=== PATIENT | female | born 1970 | race Caucasian/White ===

== ENCOUNTER 2022-09-20 19:32 | Inpatient (IN) | payer MEDICAID ==
[~2022-09-20] VITALS: Ht 162.6 cm; Wt 83.9 kg
[2022-09-20 19:40] VITALS: BP_SYST 172
[2022-09-20] MEDS ORDERED: iohexoL 350 mgI/mL, 100 ML INFUS..BTL IV ONE (19:53)
[2022-09-20] MEDS ORDERED: ATORVASTATIN 20 MG TABLET PO ONE (21:00)
[2022-09-20] MEDS ORDERED: CLOPIDOGREL BISULFATE 75 MG TABLET PO ONE (21:00)
[2022-09-20] MEDS ORDERED: ASPIRIN 325 MG TABLET PO ONE (21:00)
[2022-09-20 21:15] LABS: BASOPHILS % (AUTO) 0.8 % (0.0-2.0); EOSINOPHILS # (AUTO) 0.6 K/uL (0.0-0.4); EOSINOPHILS % (AUTO) 9.9 % (0.0-4.0); HEMATOCRIT 33.6 % (36-48); HEMOGLOBIN 11.3 g/dL (12.0-16.0); LYMPHOCYTES # (AUTO) 0.8 K/uL (1.0-5.5); LYMPHOCYTES % (AUTO) 13.4 % (20.5-51.5); MEAN CORPUSCULAR HEMOGLOBIN 29 pg (27-31); MEAN CORPUSCULAR HGB CONC 34 % (32-36); MEAN CORPUSCULAR VOLUME 86 fL (79.0-98.0); MONOCYTES # (AUTO) 0.7 K/uL (0.0-1.0); MONOCYTES % (AUTO) 11.2 % (1.7-9.3); NEUTROPHILS % (AUTO) 64.7 % (40.0-70.0); PLATELET COUNT (AUTO) 358 K/uL (130-430); RED BLOOD CELL COUNT(AUTO) 3.89 MIL/uL (4.2-6.2); RED CELL DISTRIBUTION WIDTH 17.3 % (9.0-15.0); WHITE BLOOD COUNT (AUTO) 6.2 K/uL (4.8-10.8)
[2022-09-20 21:42] LABS: ALANINE AMINOTRANSFERASE 32 U/L (12-78); ALBUMIN 3.7 g/dL (3.4-4.8); ANION GAP 10 (5-15); ASPARTATE AMINOTRANSFERASE 25 U/L (10-37); CALCIUM 9.9 mg/dL (8.4-11.0); CHLORIDE 102 mmol/L (98-107); CREATININE 1.06 mg/dL (0.55-1.30); GFR AFRICAN AMERICAN 70 mL/min (>90); GLUCOSE 88 mg/dL (70-99); TOTAL BILIRUBIN 0.3 mg/dL (0.0-1.0); UREA NITROGEN, BLOOD 16 mg/dL (8-21)
[2022-09-20] MEDS ORDERED: ATORVASTATIN 20 MG TABLET ONE (21:42)
[2022-09-20] MEDS ORDERED: hydrALAZINE HCL 20 MG/ML VIAL IVP ONE ×2 (21:45→22:45)
[2022-09-20] MEDS ORDERED: hydrALAZINE HCL 20 MG/ML VIAL ONE (21:58)
[2022-09-20] MEDS ORDERED: LORazepam 2 MG/ML VIAL IVP ONE (22:00)
[2022-09-20] MEDS ORDERED: AMLO5TAB4 PO (22:10)
[2022-09-20] MEDS ORDERED: LEVO25CA4 PO (22:10)
[2022-09-20] MEDS ORDERED: SIMV5TAB59 PO (22:10)
[2022-09-20] MEDS ORDERED: HYG25 PO (22:10)
[2022-09-20] MEDS ORDERED: OXYC10TA48 PO (22:10)
[2022-09-20] MEDS ORDERED: CLON0.1T PO (22:10)
[2022-09-20] MEDS ORDERED: FAMO40TA71 PO (22:20)
[2022-09-20] MEDS ORDERED: METO100T14 PO (22:20)
[2022-09-20] MEDS ORDERED: TIZA-198 PO (22:20)
[2022-09-20] MEDS ORDERED: SER100 PO (22:20)
[2022-09-20] MEDS ORDERED: OMEP20CA4 PO (22:20)
[2022-09-20 22:29] LABS: BARBITURATE, URINE NEGATIVE (NEG <=200); BENZODIAZEPINE, URINE NEGATIVE (NEG <=150); CANNABINOID, URINE NEGATIVE (NEG <=50); COCAINE, URINE NEGATIVE (NEG <=150); METHAMPHETAMINES SCREEN,URINE NEGATIVE (NEG <=500); PHENCYCLIDINE SCREEN,URINE NEGATIVE (NEG <=25); URINE AMPHETAMINE NEGATIVE (NEG <=500); URINE METHADONE NEGATIVE (NEG <=200); URINE PROPOXYPHENE SCREEN NEGATIVE (NEG <=300)
[2022-09-20 22:30] LABS: OPIATE, URINE POSITIVE (NEG <=100); UR TRICYCLIC ANTIDEPRESSANTS POSITIVE (NEG <=300); URINE OXYCODONE SCREEN POSITIVE (NEG <=100)
[2022-09-20] MEDS ORDERED: hydrALAZINE HCL 20 MG/ML VIAL IVP PRN (23:00)
[2022-09-20] MEDS ORDERED: OXYCODONE HCL PO SCH (23:15)
[2022-09-20 23:30] VITALS: BP_SYST 131
[2022-09-21] VITALS (12 sets, daily range): BP systolic 102–158
[2022-09-21] MEDS: D5/0.45 NS 1,000 ML IV SCH ×2 (00:58→17:34)
[2022-09-21] MEDS: amLODIPine BESYLATE 5 MG TABLET PO SCH ×2 (01:21→09:39)
[2022-09-21] MEDS ORDERED: ONDANSETRON HCL 4 MG/2 ML VIAL IVP PRN (01:45)
[2022-09-21] MEDS ORDERED: NALOXONE HCL 0.4 MG/ML AMP (NARCAN) IVP PRN (01:45)
[2022-09-21] MEDS ORDERED: MORPHINE 2 MG/ML INJ. SYRINGE IVP PRN (01:45)
[2022-09-21] MEDS ORDERED: ACETAMINOPHEN 325 MG TABLET PO PRN (01:45)
[2022-09-21] MEDS ORDERED: MORPHINE 4 MG INJ. 4 MG/ML VIAL ONE (01:51)
[2022-09-21] MEDS: MORPHINE 4 MG INJ. 4 MG/ML VIAL IVP PRN ×5 (02:03→19:33)
[2022-09-21 03:36] LABS: BILIRUBIN,URINE NEGATIVE (NEGATIVE); BLOOD, URINE NEGATIVE (NEGATIVE); CLARITY/URINE CLEAR (CLEAR); COLOR,URINE YELLOW (YELLOW); GLUCOSE,URINE NEGATIVE (NEGATIVE); KETONES,URINE NEGATIVE (NEGATIVE); LEUKOCYTE ESTERASE ,URINE NEGATIVE (NEGATIVE); NITRITE, URINE NEGATIVE (NEGATIVE); PROTEIN URINE NEGATIVE (NEGATIVE); UROBILINOGEN,URINE 0.2 (0.2-1.0)
[2022-09-21 06:13] LABS: BASOPHILS % (AUTO) 0.8 % (0.0-2.0); EOSINOPHILS # (AUTO) 0.3 K/uL (0.0-0.4); EOSINOPHILS % (AUTO) 5.5 % (0.0-4.0); HEMATOCRIT 34.4 % (36-48); HEMOGLOBIN 11.7 g/dL (12.0-16.0); LYMPHOCYTES # (AUTO) 0.8 K/uL (1.0-5.5); LYMPHOCYTES % (AUTO) 13.2 % (20.5-51.5); MEAN CORPUSCULAR HEMOGLOBIN 29 pg (27-31); MEAN CORPUSCULAR HGB CONC 34 % (32-36); MEAN CORPUSCULAR VOLUME 86 fL (79.0-98.0); MONOCYTES # (AUTO) 0.5 K/uL (0.0-1.0); MONOCYTES % (AUTO) 8.9 % (1.7-9.3); NEUTROPHILS # (AUTO) 4.2 K/uL (1.8-7.7); NEUTROPHILS % (AUTO) 71.6 % (40.0-70.0); PLATELET COUNT (AUTO) 406 K/uL (130-430); RED BLOOD CELL COUNT(AUTO) 4.02 MIL/uL (4.2-6.2); RED CELL DISTRIBUTION WIDTH 17.7 % (9.0-15.0); WHITE BLOOD COUNT (AUTO) 5.9 K/uL (4.8-10.8)
[2022-09-21 06:23] LABS: PROTHROMBIN TIME 10.5 SECS (9.5-12.5)
[2022-09-21] MEDS: LEVOTHYROXINE SODIUM 0.025 MG TABLET PO SCH (06:59)
[2022-09-21 07:15] LABS: ALBUMIN 3.7 g/dL (3.4-4.8); CALCIUM 10.2 mg/dL (8.4-11.0); CREATININE 0.8 mg/dL (0.55-1.30); THYROID STIMULATING HORMONE 1.07 uIu/mL (0.34-4.82); TOTAL BILIRUBIN 0.3 mg/dL (0.0-1.0)
[2022-09-21] MEDS: CHLORTHALIDONE 25 MG TABLET (HYGROTON) PO SCH (09:00)
[2022-09-21] MEDS ORDERED: OMEPRAZOLE Non-Formulary 20 MG CAPSULE.DR PO SCH (09:00)
[2022-09-21] MEDS: ASPIRIN 81 MG TAB.CHEW PO SCH (09:36)
[2022-09-21] MEDS: CLOPIDOGREL BISULFATE 75 MG TABLET PO SCH (09:37)
[2022-09-21] MEDS: METOPROLOL TARTRATE 50 MG TABLET PO SCH ×2 (09:37→21:06)
[2022-09-21] MEDS: FAMOTIDINE 20 MG TABLET PO SCH ×2 (09:38→21:05)
[2022-09-21] MEDS: cloNIDine HCL 0.1 MG TABLET PO SCH ×2 (09:38→21:06)
[2022-09-21] MEDS: PANTOPRAZOLE SODIUM 40 MG TAB PO SCH (09:38)
[2022-09-21] MEDS: ATORVASTATIN 20 MG TABLET PO SCH (09:39)
[2022-09-21] MEDS ORDERED: QUEtiapine FUMARATE 100 MG TABLET PO SCH (18:00)
[2022-09-21] MEDS ORDERED: POTASSIUM CHLORIDE 20 MEQ TAB.PRT.SR PO ONE (18:00)
[2022-09-21] MEDS ORDERED: SIMVASTATIN 10 MG TABLET PO SCH (21:00)
[2022-09-22] VITALS: BP_SYST 103
[2022-09-22] MEDS: MORPHINE 4 MG INJ. 4 MG/ML VIAL IVP PRN ×5 (00:04→16:52)
[2022-09-22] MEDS: LEVOTHYROXINE SODIUM 0.025 MG TABLET PO SCH (06:37)
[2022-09-22 07:19] LABS: EOSINOPHILS # (AUTO) 0.3 K/uL (0.0-0.4); EOSINOPHILS % (AUTO) 7.6 % (0.0-4.0); HEMATOCRIT 34.3 % (36-48); HEMOGLOBIN 11.4 g/dL (12.0-16.0); LYMPHOCYTES # (AUTO) 1.4 K/uL (1.0-5.5); LYMPHOCYTES % (AUTO) 35.2 % (20.5-51.5); MEAN CORPUSCULAR HEMOGLOBIN 29 pg (27-31); MEAN CORPUSCULAR HGB CONC 33 % (32-36); MEAN CORPUSCULAR VOLUME 87 fL (79.0-98.0); MONOCYTES # (AUTO) 0.5 K/uL (0.0-1.0); MONOCYTES % (AUTO) 11.7 % (1.7-9.3); NEUTROPHILS # (AUTO) 1.8 K/uL (1.8-7.7); NEUTROPHILS % (AUTO) 44.5 % (40.0-70.0); PLATELET COUNT (AUTO) 336 K/uL (130-430); RED BLOOD CELL COUNT(AUTO) 3.93 MIL/uL (4.2-6.2)
[2022-09-22 07:35] VITALS: BP_SYST 116
[2022-09-22 07:47] LABS: ALBUMIN 3.4 g/dL (3.4-4.8); CALCIUM 9.3 mg/dL (8.4-11.0); CREATININE 0.96 mg/dL (0.55-1.30); TOTAL BILIRUBIN 0.3 mg/dL (0.0-1.0)
[2022-09-22] MEDS ORDERED: POTASSIUM CHLORIDE 20 MEQ TAB.PRT.SR PO SCH (09:00)
[2022-09-22] MEDS: ATORVASTATIN 20 MG TABLET PO SCH (09:24)
[2022-09-22] MEDS: ASPIRIN 81 MG TAB.CHEW PO SCH (09:24)
[2022-09-22] MEDS: cloNIDine HCL 0.1 MG TABLET PO SCH ×2 (09:25→20:39)
[2022-09-22] MEDS: METOPROLOL TARTRATE 50 MG TABLET PO SCH ×2 (09:27→20:40)
[2022-09-22] MEDS: amLODIPine BESYLATE 5 MG TABLET PO SCH (09:27)
[2022-09-22] MEDS: CLOPIDOGREL BISULFATE 75 MG TABLET PO SCH (09:28)
[2022-09-22] MEDS: PANTOPRAZOLE SODIUM 40 MG TAB PO SCH (09:28)
[2022-09-22] MEDS: FAMOTIDINE 20 MG TABLET PO SCH ×2 (09:28→20:41)
[2022-09-22] MEDS: CHLORTHALIDONE 25 MG TABLET (HYGROTON) PO SCH (09:30)
[2022-09-22 11:59] VITALS: BP_SYST 120
[2022-09-22 17:08] VITALS: BP_SYST 145
[2022-09-22] MEDS: OXYCODONE/ACETAMINOPHEN *10*mg/325 mg TABLET PO PRN (18:30)
[2022-09-22] MEDS: QUEtiapine FUMARATE 100 MG TABLET PO SCH (18:31)
[2022-09-22 20:00] VITALS: BP_SYST 96
[2022-09-22] MEDS: DOCUSATE SODIUM 250 MG CAPSULE PO SCH (20:41)
[2022-09-22] MEDS: OXYCODONE/ACETAMINOPHEN 5-325 TABLET PO PRN (22:39)
[2022-09-23] MEDS: OXYCODONE/ACETAMINOPHEN *10*mg/325 mg TABLET PO PRN ×3 (01:33→21:17)
[2022-09-23 03:23] VITALS: BP_SYST 93
[2022-09-23] MEDS: OXYCODONE/ACETAMINOPHEN 5-325 TABLET PO PRN ×2 (05:18→18:05)
[2022-09-23] MEDS: LEVOTHYROXINE SODIUM 0.025 MG TABLET PO SCH (06:49)
[2022-09-23] MEDS: cloNIDine HCL 0.1 MG TABLET PO SCH ×2 (08:53→22:09)
[2022-09-23] MEDS: METOPROLOL TARTRATE 50 MG TABLET PO SCH ×2 (08:54→22:09)
[2022-09-23] MEDS: DOCUSATE SODIUM 250 MG CAPSULE PO SCH ×2 (08:58→22:09)
[2022-09-23] MEDS: FAMOTIDINE 20 MG TABLET PO SCH ×2 (08:59→22:08)
[2022-09-23] MEDS: ATORVASTATIN 20 MG TABLET PO SCH (08:59)
[2022-09-23] MEDS: ASPIRIN 81 MG TAB.CHEW PO SCH (09:00)
[2022-09-23] MEDS: PANTOPRAZOLE SODIUM 40 MG TAB PO SCH (09:00)
[2022-09-23] MEDS: CLOPIDOGREL BISULFATE 75 MG TABLET PO SCH (09:00)
[2022-09-23] MEDS ORDERED: PROPOFOL 200MG/ 20ML VIAL (DIPRIVAN) IV ONE (10:20)
[2022-09-23] MEDS ORDERED: NEOSTIGMINE METHYLSULFATE 1 MG/ML, 10 ML VIAL ONE (10:20)
[2022-09-23] MEDS ORDERED: LR 1,000 ML IV.SOLN IV ONE (10:20)
[2022-09-23] MEDS ORDERED: ROCURONIUM BROMIDE 10 MG/ML (ZEMURON) ONE (10:20)
[2022-09-23] MEDS ORDERED: BUPIVACAINE /EPINEPHRINE/PF 0.5% 30 ML VIAL INJ ONE (10:20)
[2022-09-23] MEDS ORDERED: LIDOCAINE 1% 10 MG/ML, 20 ML MDV ONE (10:20)
[2022-09-23] MEDS ORDERED: ceFAZolin SODIUM 2 GM VIAL ONE (10:20)
[2022-09-23] MEDS ORDERED: GLYCOPYRROLATE 0.2 MG/ML VIAL ONE (10:20)
[2022-09-23] MEDS ORDERED: METOCLOPRAMIDE HCL 10 MG/2 ML VIAL ONE (10:20)
[2022-09-23] MEDS ORDERED: HYDROmorphone 2 MG/ML VIAL ONE (10:20)
[2022-09-23] MEDS ORDERED: SEVOFLURANE 15 MIN GAS INH ONE (10:20)
[2022-09-23] MEDS ORDERED: ONDANSETRON HCL 4 MG/2 ML VIAL ONE (10:20)
[2022-09-23] MEDS ORDERED: fentaNYL CITRATE/PF 100 MCG/2 ML AMP ONE (10:20)
[2022-09-23] MEDS ORDERED: MIDAZOLAM HCL 2 MG/2 ML VIAL (VERSED) ONE ×2 (10:20→13:54)
[2022-09-23] MEDS ORDERED: NS IRRIG SOLN 1000 ML IR ONE (10:20)
[2022-09-23] MEDS ORDERED: HYDROmorphone 1 MG/ML INJ. CARTRIDGE IVP PRN (11:30)
[2022-09-23] MEDS ORDERED: HYDROmorphone 2 MG/ML VIAL IVP PRN (11:30)
[2022-09-23] MEDS ORDERED: LR 1,000 ML IV SCH (11:30)
[2022-09-23] MEDS ORDERED: KETOROLAC TROMETHAMINE 30 MG VIAL IVP PRN (11:30)
[2022-09-23] MEDS ORDERED: ONDANSETRON HCL 4 MG/2 ML VIAL IVP PRN (11:30)
[2022-09-23] MEDS ORDERED: ACETAMINOPHEN I.V. 1000 MG 100 ML IV ONE (11:57)
[2022-09-23 12:11] VITALS: BP_SYST 135
[2022-09-23 12:39] VITALS: BP_SYST 135
[2022-09-23] MEDS ORDERED: NALOXONE HCL 0.4 MG/ML AMP (NARCAN) IVP PRN (13:30)
[2022-09-23] MEDS: MIDAZOLAM HCL 2 MG/2 ML VIAL (VERSED) IVP ONE ×2 (14:00→15:26)
[2022-09-23] MEDS: QUEtiapine FUMARATE 100 MG TABLET PO SCH (18:05)
[2022-09-23 20:00] VITALS: BP_SYST 113
[2022-09-23] MEDS: ceFAZolin SODIUM 2 GM in D5W 100 ML IV SCH (22:08)
[2022-09-24] VITALS: BP_SYST 104
[2022-09-24] MEDS: HYDROmorphone 1 MG/ML INJ. CARTRIDGE IVP PRN ×7 (00:12→21:09)
[2022-09-24] MEDS: OXYCODONE/ACETAMINOPHEN 5-325 TABLET PO PRN ×2 (01:46→09:12)
[2022-09-24] MEDS: OXYCODONE/ACETAMINOPHEN *10*mg/325 mg TABLET PO PRN ×3 (04:13→22:56)
[2022-09-24] MEDS: ceFAZolin SODIUM 2 GM in D5W 100 ML IV SCH ×2 (06:12→14:10)
[2022-09-24] MEDS: LEVOTHYROXINE SODIUM 0.025 MG TABLET PO SCH (06:12)
[2022-09-24 06:33] LABS: BASOPHILS % (AUTO) 0.4 % (0.0-2.0); EOSINOPHILS # (AUTO) 0.1 K/uL (0.0-0.4); EOSINOPHILS % (AUTO) 2.2 % (0.0-4.0); HEMATOCRIT 31.7 % (36-48); HEMOGLOBIN 10.5 g/dL (12.0-16.0); LYMPHOCYTES # (AUTO) 0.8 K/uL (1.0-5.5); LYMPHOCYTES % (AUTO) 14.2 % (20.5-51.5); MEAN CORPUSCULAR HEMOGLOBIN 29 pg (27-31); MEAN CORPUSCULAR HGB CONC 33 % (32-36); MEAN CORPUSCULAR VOLUME 88 fL (79.0-98.0); MONOCYTES # (AUTO) 0.7 K/uL (0.0-1.0); MONOCYTES % (AUTO) 11.8 % (1.7-9.3); NEUTROPHILS # (AUTO) 4.3 K/uL (1.8-7.7); NEUTROPHILS % (AUTO) 71.4 % (40.0-70.0); PLATELET COUNT (AUTO) 296 K/uL (130-430); RED BLOOD CELL COUNT(AUTO) 3.61 MIL/uL (4.2-6.2); RED CELL DISTRIBUTION WIDTH 17.7 % (9.0-15.0); WHITE BLOOD COUNT (AUTO) 5.9 K/uL (4.8-10.8)
[2022-09-24 06:46] LABS: CALCIUM 8.8 mg/dL (8.4-11.0); CREATININE 1.1 mg/dL (0.55-1.30)
[2022-09-24 08:00] VITALS: BP_SYST 159
[2022-09-24] MEDS: FAMOTIDINE 20 MG TABLET PO SCH ×2 (09:06→21:24)
[2022-09-24] MEDS: cloNIDine HCL 0.1 MG TABLET PO SCH ×2 (09:06→21:27)
[2022-09-24] MEDS: PANTOPRAZOLE SODIUM 40 MG TAB PO SCH (09:06)
[2022-09-24] MEDS: METOPROLOL TARTRATE 50 MG TABLET PO SCH ×2 (09:06→21:28)
[2022-09-24] MEDS: DOCUSATE SODIUM 250 MG CAPSULE PO SCH ×2 (09:06→21:24)
[2022-09-24] MEDS: ATORVASTATIN 20 MG TABLET PO SCH (09:07)
[2022-09-24 12:00] VITALS: BP_SYST 129
[2022-09-24] MEDS ORDERED: POTASSIUM CHLORIDE 20 MEQ TAB.PRT.SR PO ONE (14:30)
[2022-09-24] MEDS ORDERED: CHOLECALCIFEROL (VITAMIN D3) 2,000 UNIT TABLET PO ONE (15:00)
[2022-09-24] MEDS: QUEtiapine FUMARATE 100 MG TABLET PO SCH (18:36)
[2022-09-24 20:00] VITALS: BP_SYST 140
[2022-09-24] MEDS ORDERED: ENOXAPARIN SODIUM 40 MG/0.4 ML SYRINGE SUBCUT SCH (21:00)
[2022-09-24] MEDS: CHOLECALCIFEROL (VITAMIN D3) 2,000 UNIT TABLET PO SCH (21:28)
[2022-09-25] VITALS: BP_SYST 119
[2022-09-25] MEDS: HYDROmorphone 1 MG/ML INJ. CARTRIDGE IVP PRN ×7 (00:29→14:51)
[2022-09-25] MEDS: LEVOTHYROXINE SODIUM 0.025 MG TABLET PO SCH (06:13)
[2022-09-25 08:00] VITALS: BP_SYST 117
[2022-09-25 08:42] LABS: BASOPHILS % (AUTO) 0.6 % (0.0-2.0); EOSINOPHILS # (AUTO) 0.3 K/uL (0.0-0.4); EOSINOPHILS % (AUTO) 5.2 % (0.0-4.0); HEMATOCRIT 29.9 % (36-48); HEMOGLOBIN 9.9 g/dL (12.0-16.0); LYMPHOCYTES # (AUTO) 0.9 K/uL (1.0-5.5); LYMPHOCYTES % (AUTO) 14.5 % (20.5-51.5); MEAN CORPUSCULAR HEMOGLOBIN 29 pg (27-31); MEAN CORPUSCULAR HGB CONC 33 % (32-36); MEAN CORPUSCULAR VOLUME 88 fL (79.0-98.0); MONOCYTES # (AUTO) 0.6 K/uL (0.0-1.0); NEUTROPHILS # (AUTO) 4.2 K/uL (1.8-7.7); NEUTROPHILS % (AUTO) 69.7 % (40.0-70.0); PLATELET COUNT (AUTO) 267 K/uL (130-430); RED BLOOD CELL COUNT(AUTO) 3.39 MIL/uL (4.2-6.2); RED CELL DISTRIBUTION WIDTH 17.5 % (9.0-15.0)
[2022-09-25] MEDS: ATORVASTATIN 20 MG TABLET PO SCH (08:50)
[2022-09-25] MEDS: FAMOTIDINE 20 MG TABLET PO SCH (08:51)
[2022-09-25] MEDS: PANTOPRAZOLE SODIUM 40 MG TAB PO SCH (08:51)
[2022-09-25] MEDS: CHOLECALCIFEROL (VITAMIN D3) 2,000 UNIT TABLET PO SCH (08:51)
[2022-09-25 08:52] LABS: CALCIUM 9.6 mg/dL (8.4-11.0); CREATININE 0.95 mg/dL (0.55-1.30)
[2022-09-25] MEDS: METOPROLOL TARTRATE 50 MG TABLET PO SCH (08:53)
[2022-09-25] MEDS ORDERED: ASPIRIN 81 MG TABLET(ECOTRIN) PO SCH (09:00)
[2022-09-25] MEDS: DOCUSATE SODIUM 250 MG CAPSULE PO SCH (09:49)
[2022-09-25] MEDS: cloNIDine HCL 0.1 MG TABLET PO SCH (09:49)
[2022-09-25 12:00] VITALS: BP_SYST 121
[2022-09-25] MEDS ORDERED: ASA81 PO (13:44)
[2022-09-25 16:00] VITALS: BP_SYST 139
[2022-09-25 16:34] VITALS: BP_SYST 128
[2022-09-25 16:46] VITALS: BP_SYST 121
== END 2022-09-25 17:10 | disposition home health service (06) | DRG 314 ==
LOC: SED 19:32 → SIC 21:32 → STU 09-21 08:00
PROVIDERS: ADMIT Internal Medicine; ATTEND Internal Medicine
PROC: 0QSP04Z Reposition Left Metatarsal with Internal Fixation Device, Open Approach (ICD-10-PCS; 2022-09-23)
PROC: 0PSG06Z Reposition Left Humeral Shaft with Intramedullary Internal Fixation Device, Open Approach (ICD-10-PCS; principal; 2022-09-23 09:30)
DX: S42.302A Unspecified fracture of shaft of humerus, left arm, initial encounter for closed fracture (principal); G92.8 Other toxic encephalopathy; I67.4 Hypertensive encephalopathy; E03.9 Hypothyroidism, unspecified; S92.812A Other fracture of left foot, initial encounter for closed fracture; I10 Essential (primary) hypertension; G89.4 Chronic pain syndrome; F32.A Depression, unspecified; Z20.822 Contact with and (suspected) exposure to COVID-19; F11.20 Opioid dependence, uncomplicated; W18.39XA Other fall on same level, initial encounter; T40.605A Adverse effect of unspecified narcotics, initial encounter; T43.205A Adverse effect of unspecified antidepressants, initial encounter; I25.2 Old myocardial infarction; Z87.891 Personal history of nicotine dependence; Z79.899 Other long term (current) drug therapy; Y93.89 Activity, other specified; Y92.89 Other specified places as the place of occurrence of the external cause; Y99.8 Other external cause status
CPT/HCPCS: 36415; 70450-TC; 70496; 70498; 70551; 71045; 73060-TC; 73700-TC; 76000; 76376; 80048; 80053; 80061; 80307; 81003; 82140; 83735; 83880; 84439; 84443; 84484; 85025; 85379; 85610-TC; 85730-TC; 86886; 86900; 86901; 87081; 92610-GN; 93005; 93306; 96374; 96375; 96376; 97110-GP; 97112-GP; 97116-GP; 97163-GP; 97530-GP; 99285; C1713; C1769; G0378; J0131; J0360; J1170; J1650; J2001; J2060; J2270; J2405; J2704; J2710; J2765; J3010; J3465; J3490; J7060; J7120; Q9967

== ENCOUNTER 2023-01-09 14:00 | Emergency (ER) | payer MEDICAID ==
[~2023-01-09] VITALS: Ht 162.6 cm; Wt 81.6 kg
[~2023-01-09 14:00] MED LIST: AMLO5TAB4 PO; ASA81 PO; CLON0.1T PO; FAMO40TA71 PO; HYG25 PO; LEVO25CA4 PO; METO100T14 PO; OMEP20CA4 PO; OXYC10TA48 PO; SER100 PO; SIMV5TAB59 PO; TIZA-198 PO
[2023-01-09 16:47] VITALS: BP_SYST 159; PULSE 74; RESP 18; TEMP 97.3; O2SAT 98
--- NOTE | 2023-01-09 17:50 | NUR ---
Patient to ER bed 7 to gown for evaluation. Side rails up. Report given to ISA.
[2023-01-09] MEDS ORDERED: MORPHINE 4 MG INJ. 4 MG/ML VIAL IM ONE (18:00)
[2023-01-09] MEDS ORDERED: ONDANSETRON 4 MG ODT TAB PO ONE (18:00)
[2023-01-09 18:08] VITALS: BP_SYST 139; PULSE 89; RESP 18; O2SAT 98
--- NOTE | 2023-01-09 18:08 | NUR ---
Patient given written and verbal discharge instructions and verbalizes understanding. ER MD ASHFORD discussed with patient the results and treatment provided. Patient in stable condition. ID arm band removed. Patient educated on pain management and to follow up with PMD. Opportunity for questions provided and answered.
== END 2023-01-09 18:08 | disposition home or self-care (01) ==
LOC: SED 14:00
DX: S93.602A Unspecified sprain of left foot, initial encounter (principal); I10 Essential (primary) hypertension; Z79.899 Other long term (current) drug therapy; W18.40XA Slipping, tripping and stumbling without falling, unspecified, initial encounter; Y93.89 Activity, other specified; Y92.89 Other specified places as the place of occurrence of the external cause; Y99.8 Other external cause status
CPT/HCPCS: 99284; 72100; 73552; 73610; 73630; 96372; Q0162; J2270

== ENCOUNTER 2023-01-10 18:34 | Emergency (ER) | payer MEDICAID ==
[~2023-01-10] VITALS: Ht 162.6 cm; Wt 81.6 kg
[2023-01-10 18:50] VITALS: BP_SYST 95; PULSE 96; RESP 18; TEMP 97.4; O2SAT 94
[2023-01-10] MEDS ORDERED: MORPHINE 4 MG INJ. 4 MG/ML VIAL IVP ONE (19:45)
[2023-01-10] MEDS ORDERED: ONDANSETRON HCL 4 MG/2 ML VIAL IVP ONE (19:45)
[2023-01-10] MEDS ORDERED: ONDANSETRON HCL 4 MG/2 ML VIAL IM ONE (20:30)
[2023-01-10] MEDS ORDERED: MORPHINE 4 MG INJ. 4 MG/ML VIAL IM ONE (20:30)
[2023-01-10 21:00] VITALS: BP_SYST 95; PULSE 96; RESP 18; TEMP 97.4; O2SAT 94
== END 2023-01-10 21:00 | disposition home or self-care (01) ==
LOC: SED 18:34
DX: M79.672 Pain in left foot (principal); M54.50 Low back pain, unspecified; I10 Essential (primary) hypertension; Z79.899 Other long term (current) drug therapy
CPT/HCPCS: 99284; 96372; J2405; J2270

== ENCOUNTER 2023-04-12 14:14 | Emergency (ER) | payer MEDICAID ==
[~2023-04-12] VITALS: Ht 162.6 cm; Wt 81.6 kg
[2023-04-12 14:39] VITALS: BP_SYST 98; PULSE 50; RESP 16; TEMP 97.9; O2SAT 96
[2023-04-12 16:29] VITALS: BP_SYST 102; PULSE 54; RESP 16; TEMP 97.9; O2SAT 96
[2023-04-12] MEDS ORDERED: MORPHINE 4 MG INJ. 4 MG/ML VIAL IM ONE (16:30)
== END 2023-04-12 16:29 | disposition home or self-care (01) ==
LOC: SED 14:14
DX: G89.29 Other chronic pain (principal); M79.672 Pain in left foot; I10 Essential (primary) hypertension; E05.90 Thyrotoxicosis, unspecified without thyrotoxic crisis or storm; Z79.899 Other long term (current) drug therapy
CPT/HCPCS: 99283; 73630; 96372; J2270